=== PATIENT | female | born 1995 | race Asian ===

== ENCOUNTER 2017-04-22 21:28 | Emergency (ER) | payer BC ==
[~2017-04-22] VITALS: Ht 167.6 cm; Wt 58.6 kg
[2017-04-22 21:48] VITALS: Ht 167.6 cm; Wt 58.6 kg
[2017-04-22 23:04] LABS: PLATELET COUNT 290 x10^3mcL (130-400)
[2017-04-22 23:11] LABS: CALCIUM 9.4 mg/dL (8.5-10.1); CHLORIDE SERUM 104 mmol/L (98-107); GFR1 > 60 mL/min; GLUCOSE SERUM 111 mg/dL (74-106); POTASSIUM SERUM 4.1 mmol/L (3.5-5.1); SODIUM SERUM 139 mmol/L (136-145)
[2017-04-22 23:15] LABS: ALBUMIN 4.7 g/dL (3.4-5.0); ALKALINE PHOSPHATASE 64 U/L (46-116); ALT/SGPT 21 U/L (14-59); AMYLASE 74 U/L (25-115); AST/SGOT 24 U/L (15-37); BILIRUBIN TOTAL 1.01 mg/dL (0.20-1.00); LIPASE 99 IU/L (73-393); RED CELL DISTRIBUTION WIDTH 14.8 % (11.5-14.5)
[2017-04-22 23:18] LABS: TOTAL PROTEIN, SERUM 9.6 g/dL (6.4-8.2)
[2017-04-23 00:09] LABS: BAND NEUTROPHIL 7 % (0-10); METAMYELOCTE 2 % (0-2); MONOCYTE 5 % (0-7); SEGMENTED NEUTROPHILS 85 % (37-75); rbc morphology (normal/abnorm) ABNORMAL (NORMAL)
[2017-04-23 00:10] LABS: PLATELET MORPHOLOGY LARGE PLATELET SEEN; ovalocyte/elliptocyte 1+
[2017-04-23 02:16] VITALS: BP 114/60
== END 2017-04-23 01:45 | disposition home or self-care (01) ==
LOC: ED 21:28
PROVIDERS: Emergency Medicine
PROC: 3E033GC Introduction of Other Therapeutic Substance into Peripheral Vein, Percutaneous Approach (ICD-10-PCS; principal; 2017-04-23)
DX: A09 Infectious gastroenteritis and colitis, unspecified (principal); R11.10 Vomiting, unspecified; R19.7 Diarrhea, unspecified; R10.9 Unspecified abdominal pain; E86.0 Dehydration; D72.829 Elevated white blood cell count, unspecified
CPT/HCPCS: 83880; 87046; 87046-59; J2405; J7030